=== PATIENT | female | born 1960 | race Two or more races ===

== ENCOUNTER 2022-05-26 20:05 | Emergency (ER) | payer OTHER ==
[~2022-05-26] VITALS: Ht 167.6 cm; Wt 72.6 kg
[2022-05-26] MEDS ORDERED: [UNRECOGNIZED DRUG - OTHER] (20:19)
== END 2022-05-27 11:38 | disposition home or self-care (01) ==
LOC: ER 20:05
DX: R63.0 Anorexia (principal); E11.65 Type 2 diabetes mellitus with hyperglycemia

== ENCOUNTER 2023-01-08 18:18 | Emergency (ER) | payer OTHER ==
[~2023-01-08] VITALS: Ht 165.1 cm; Wt 68.0 kg
[~2023-01-08 18:18] MED LIST: [UNRECOGNIZED DRUG - OTHER]
== END 2023-01-09 08:33 | disposition home or self-care (01) ==
LOC: ER 18:18
PROVIDERS: General Practice
DX: E11.65 Type 2 diabetes mellitus with hyperglycemia (principal); E86.0 Dehydration; R11.10 Vomiting, unspecified; Z20.822 Contact with and (suspected) exposure to COVID-19

== ENCOUNTER 2024-07-19 13:18 | Emergency (ER) | payer OTHER ==
[~2024-07-19] VITALS: Ht 167.6 cm; Wt 64.0 kg
[2024-07-19] MEDS ORDERED: JENTADUETO 2.51 EAC2 PO (13:44)
== END 2024-07-19 15:26 | disposition home or self-care (01) ==
LOC: ER 13:21
DX: Z48.02 Encounter for removal of sutures (principal)